=== PATIENT | male | born 1955 | race Caucasian/White ===

== ENCOUNTER → 2023-01-03 | Outpatient (CLI) | payer OTHER ==
[2023-01-03 13:02] LABS: Potassium 4.6 mmol/L (3.5-5.1)
[2023-01-03 13:07] LABS: BUN/Creatinine Ratio 16.3 (10.0-20.0)
== END | disposition home or self-care (01) ==
LOC: LAB 12:05
DX: E78.5 Hyperlipidemia, unspecified (principal)
CPT/HCPCS: 36415; 80048; 80061; 84443; 84450; 84460